=== PATIENT | male | born 1990 | race Caucasian/White ===

== ENCOUNTER 2020-01-23 17:53 | Emergency (ER) | payer MEDICAID ==
[~2020-01-23] VITALS: Ht 172.7 cm; Wt 84.1 kg
[~2020-01-23 17:53] MED LIST: NO HOME MEDS
[2020-01-23] MEDS ORDERED: HYDROcodone/acetaminophen 10/325mg tab PO ONE ×2 (18:10→22:05)
--- NOTE | 2020-01-23 18:12 | NUR ---
MILLI SUERO [phone] (SPOUSE)
[2020-01-23] MEDS ORDERED: fentaNYL/PF 50MCG/1 ML 2ML syringe IV ONE (18:20)
[2020-01-23] MEDS ORDERED: ondansetron/PF 4mg/2ml inj IV ONE (18:25)
[2020-01-23] MEDS ORDERED: morphine 4 MG/ML inj SYRINge IV ONE (19:25)
[2020-01-23] MEDS ORDERED: morphine 10mg/ml inj. IV ONE (19:55)
--- NOTE | 2020-01-23 20:01 | NUR ---
CALLED [facility]CHIT[facility] AT 1955 SAID 30 MINS OR LESS ETA
[2020-01-23] MEDS ORDERED: propofol 10mg/ml 20ml vial IV ONE (20:30)
[2020-01-23] MEDS ORDERED: HYDR-4353 PO (21:24)
[2020-01-23 22:21] VITALS: BP 143/85
[2020-01-27] MEDS ORDERED: HYDR-3973 PO (14:26)
== END 2020-01-23 22:29 | disposition home or self-care (01) ==
LOC: ER 17:54
DX: S82.831A Other fracture of upper and lower end of right fibula, initial encounter for closed fracture (principal); S82.301A Unspecified fracture of lower end of right tibia, initial encounter for closed fracture; X50.9XXA Other and unspecified overexertion or strenuous movements or postures, initial encounter; Y93.89 Activity, other specified; Y92.89 Other specified places as the place of occurrence of the external cause; Y99.8 Other external cause status
CPT/HCPCS: 27752; 73590; 94799; 96374; 96375; 96376; 99285; J2270; J2405; J3010; 94760

== ENCOUNTER 2020-02-01 09:33 | Day surgery (SDC) | payer MEDICAID ==
[~2020-02-01] VITALS: Ht 175.3 cm; Wt 88.6 kg
[2020-02-01] VITALS (11 sets, daily range): BP systolic 150–197; BP diastolic 90–119
[~2020-02-01 09:33] MED LIST changes: +HYDR-3973 PO; -NO HOME MEDS; +famotidine 20mg tablet PO ONE; +ringers solution, lacted 1,000 ML IV SCH
[2020-02-01] MEDS ORDERED: ceFAZolin 2gm in dextrose, iso 50 ML IV ONE (10:05)
[2020-02-01] MEDS ORDERED: fentaNYL/PF 50MCG/1 ML 2ML syringe ONE ×4 (12:17→13:02)
[2020-02-01] MEDS ORDERED: MIDAZolam 5mg/5ml vial ONE ×2 (12:17→12:34)
[2020-02-01] MEDS ORDERED: ROPIVAcaine 0.5% (5mg/ml) 30ml vial ONE ×2 (12:18)
[2020-02-01] MEDS ORDERED: LIDOcaine 2% (20mg/ml) 5ml vial ONE (12:21)
[2020-02-01] MEDS ORDERED: propofol inj 20 ML IV ONE (12:21)
[2020-02-01] MEDS ORDERED: sevoflurane 250ml liquid IH ONE (12:26)
[2020-02-01] MEDS ORDERED: dexamethasone sod phosphate 10mg/ml inj ONE (12:26)
[2020-02-01] MEDS ORDERED: morphine 2 MG/ML inj. syringe IV PRN (13:15)
[2020-02-01] MEDS ORDERED: fentaNYL/PF 50MCG/1 ML 2ML syringe IV PRN (13:15)
[2020-02-01] MEDS ORDERED: hydrALAZINE 20mg/ml inj. IV PRN (13:15)
[2020-02-01] MEDS ORDERED: ondansetron/PF 4mg/2ml inj IV PRN (13:15)
[2020-02-01] MEDS ORDERED: ringers solution, lacted 1,000 ML IV SCH (13:15)
[2020-02-01] MEDS ORDERED: ondansetron/PF 4mg/2ml inj ONE (13:15)
[2020-02-01] MEDS ORDERED: morphine 4 MG/ML inj SYRINge IV PRN (13:15)
[2020-02-01] MEDS ORDERED: labetalol 20mg/4ml (5mg/ml) syringe IV ONE (13:31)
--- NOTE | 2020-02-01 14:04 | NUR ---
Received from OR via rogelio, accompanied by Anesthesiologist Ronald and report given by Anesthesiolgist. Right foot covered in splint cannot palpate pulse but toes exposed good cap refill present. VS stable except hypertensive MD states he already ordered medications for HTN. 20G left hand IVF LR at 100cc/hr. Oral airway in place.
[2020-02-01] MEDS: labetalol 20mg/4ml (5mg/ml) syringe IV PRN ×2 (14:14→15:11)
--- NOTE | 2020-02-01 14:23 | NUR ---
Pt woke up, oral airway removed and he immediately states is 10/10 pain. MD comes to bedside for update and assesses. Pt able to move toes. Orders received for Tylenol, norco 10 x2, will administer.
[2020-02-01] MEDS ORDERED: acetaminophen 1,000mg/100ml IV 100 ML IV ONE (14:25)
[2020-02-01] MEDS ORDERED: HYDROcodone/acetaminophen 10/325mg tab PO ONE (14:25)
[2020-02-01] MEDS: fentaNYL/PF 50MCG/1 ML 2ML syringe IV PRN ×2 (14:28→14:46)
--- NOTE | 2020-02-01 15:54 | NUR ---
After patient stated pain tolerable at 5/10 and had received multiple rounds of pain medicine including IV and oral, he was discharged to vehicle by wheelchair to vehicle. He states he will call MD tomorrow because he is going to run out of his Spare Backup scripts tomorrow but has enough for tonight. Otherwise all other belongings returned to patient. IV dc'd and splint dressing remains CDI. Pt and S/O verbalized understanding of all DC instructions. Pt has ice bag to go home with.
== END 2020-02-01 15:54 | disposition home or self-care (01) ==
LOC: PAS 09:33
PROVIDERS: ATTEND Orthopaedic Surgery Hand Surgery
DX: S82.291A Other fracture of shaft of right tibia, initial encounter for closed fracture (principal); S82.491A Other fracture of shaft of right fibula, initial encounter for closed fracture; F12.90 Cannabis use, unspecified, uncomplicated; G89.18 Other acute postprocedural pain; Z20.828 Contact with and (suspected) exposure to other viral communicable diseases; Z79.899 Other long term (current) drug therapy; V86.96XA Unspecified occupant of dirt bike or motor/cross bike injured in nontraffic accident, initial encounter; Y93.89 Activity, other specified; Y92.89 Other specified places as the place of occurrence of the external cause; Y99.8 Other external cause status
CPT/HCPCS: 27759; 64445; 64447; 73590; 76000; 76942; 87635; C1713; C9803; J0131; J1100; J2001; J2250; J2270; J2405; J2704; J3010; J7120; A4215; A4618; A6449; A7000; J2795; J3490